=== PATIENT | male | born 1995 | race Hispanic/Latino ===

== ENCOUNTER 2022-07-19 14:04 | Emergency (ER) | payer BC, OTHER ==
[2022-07-19] MEDS ORDERED: Lidocaine 1% MPF 2 ML VIAL ONE (14:24)
[2022-07-19] MEDS ORDERED: Boostrix 0.5 ML (Tdap) VIAL (>/=7 yrs of age) ONE (14:24)
[2022-07-19] MEDS ORDERED: Triple Antibiotic Oint 1 GM Packet ONE (15:34)
== END 2022-07-19 15:57 | disposition home or self-care (01) ==
LOC: ERS 14:04
DX: S81.811A Laceration without foreign body, right lower leg, initial encounter (principal); W22.8XXA Striking against or struck by other objects, initial encounter
CPT/HCPCS: 12002; 90471; 90715